=== PATIENT | male | born 1970 | race Caucasian/White ===

== ENCOUNTER 2018-11-26 20:37 | Emergency (ER) | payer OTHER, SELFPAY ==
[2018-11-26] MEDS ORDERED: Morphine 4 MG/ML VIAL ONE ×2 (21:02→23:13)
[2018-11-26 21:05] LABS: #Basophils 0.2 thou/uL (0.0-0.2); #Eosinphils 0.2 thou/uL (0.0-0.7); #Lymphocytes 4.6 thou/uL (1.20-3.40); #Monocytes 0.8 thou/uL (0.11-0.59); #Neutrophils 7.5 thou/uL (1.40-6.50); %Basophils 1.2 % (0.0-1.0); %Eosinophils 1.5 % (0.0-10.0); %Lymphocytes 34.3 % (21.0-51.0); %Monocytes 6.3 % (0.0-10.0); %Neutrophils 56.7 % (42.0-75.0); Mean Corpuscular HGB CONC 33.1 g/dL (32.0-36.0); Mean Corpuscular Volume 87.6 fL (78.0-98.0); Mean Platelet Volume 8.9 fL (7.4-10.4); Platelet Count 142 thou/uL (130-400); RBC Distribution Width 12.5 % (11.5-14.5); Red Blood Cell (RBC) Count 5.16 mill/uL (4.70-6.10); White Blood Cell (WBC) Count 13.2 thou/uL (4.8-10.8)
[2018-11-26 21:14] LABS: PTT 24.4 SEC (22.9-36.1); Prothrombin Time 13.1 SEC (12.0-14.7)
[2018-11-26 21:24] LABS: CKMB 0.7 ng/mL (0-6.6)
[2018-11-26 21:55] LABS: ALT (SGPT) 10 U/L (8-55); AST (SGOT) 9 U/L (5-34); Albumin 4.2 g/dL (3.5-5.0); Alkaline Phosphatase 77 U/L (40-150); Anion Gap 18 mmol/L (10-20); BUN (Urea Nitrogen) 11 mg/dL (8.9-20.6); Bilirubin, Total 0.3 mg/dL (0.2-1.2); Calc. Creatinine Clearance 0 mL/min (70-130); Calcium 9.7 mg/dL (7.8-10.44); Carbon Dioxide 21 mmol/L (22-29); Chloride 97 mmol/L (98-107); Estimated GFR-MDRD 60; Globulin 3.1 g/dL (2.4-3.5); Potassium 4.3 mmol/L (3.5-5.1); Protein, Total 7.3 g/dL (6.0-8.3); Sodium 132 mmol/L (136-145)
[2018-11-26 21:57] LABS: Glucose 578 mg/dL (70-105)
[2018-11-26] MEDS ORDERED: Insulin Regular 300 UNITS/3 ML VIAL ONE (22:00)
--- NOTE | 2018-11-26 22:19 | CT ---
CT ANGIOGRAM LEFT UPPER EXTREMITY: 11/26/18 Exam includes 3D rendering. HISTORY: Prior history of ulnar artery occlusion, status post trauma several years ago. Now with similar pain. COMPARISON: 12/26/15. There is again noted to be complete occlusion of the distal ulnar artery over the course of approxima tely 7 to 8 cm with patent superficial and deep palmar arches. On the previous study, there was an ar ea of occlusion involving the medial digital artery of the ring finger. This artery appears patent on today's study but somewhat narrowed and attenuated. The radial artery is patent throughout its cours e. 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 On the old study there was a focal area of occlusion involving the med ial digital artery of the ring finger at the level of the metacarpal head. On today's study, this art argenis is patent although somewhat narrowed. Intact radial artery. POS: [facility]
== END 2018-11-27 00:25 | disposition home or self-care (01) ==
LOC: SCSER 20:37
DX: M79.632 Pain in left forearm (principal); E11.65 Type 2 diabetes mellitus with hyperglycemia; E03.9 Hypothyroidism, unspecified; E78.00 Pure hypercholesterolemia, unspecified; F31.9 Bipolar disorder, unspecified; F17.210 Nicotine dependence, cigarettes, uncomplicated; Z79.899 Other long term (current) drug therapy; Z79.82 Long term (current) use of aspirin
CPT/HCPCS: 36416; 80053; 82550; 82553; 84484; 85025; 85610; 85730; 93005; 96361; 96372; 96374; 96376; J1815; J2270

== ENCOUNTER 2018-12-02 12:03 | Outpatient (CLI) | payer OTHER ==
--- NOTE | 2018-12-02 14:27 | ULT ---
VENOUS DUPLEX SONOGRAM LEFT UPPER EXTREMITY: HISTORY: Left arm pain and edema. FINDINGS: The left internal jugular and subclavian veins were evaluated along with the axillary, brachial, ceph alic, and basilic veins. Good color and spectral Doppler flow. IMPRESSION: No sonographic evidence of deep vein thrombosis left upper extremity. POS: [facility]
== END 2018-12-02 12:04 | disposition home or self-care (01) ==
LOC: BICULT 12:03
PROVIDERS: ATTEND Family Medicine
DX: M79.89 Other specified soft tissue disorders (principal)